=== PATIENT | female | born 1935 | race Caucasian/White ===

== ENCOUNTER 2017-03-11 06:05 | Observation (INO) | payer MEDICARE ==
[~2017-03-11] VITALS: Ht 170.2 cm; Wt 64.9 kg
[~2017-03-11 06:05] MED LIST: ZITHROMAX Z-PA250 M1 PO
[2017-03-11 06:08] VITALS: BP 151/90
--- NOTE | 2017-03-11 06:41 | Emergency Room Report ---
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 N Clinical Suspician of Infection? N Mental Status: 2 - Mildly Altered Sepsis Risk:Low Sepsis Risk Have you (or family members/close friends) recently traveled outside the [place]? N If Yes, where/when: Have you had exposure to infectious disease within the past month? N TB? Other? Specify: Comment The patient is brought in by ambulance for a syncopal episode. The patient has dementia. History is predominantly given by her son. The patient is a resident of a [facility] in [place] for the past month or so. He brought her home tonight so she could spend the night at home for a visit. In the middle of night he heard some noise in the bathroom that sounded abnormal. He got up and found the patient standing leaning on a chair. She then began to slump to the ground. He held her and eased her down. She was unconscious for about 15 minutes, eyes rolled back and hands clenched over her chest. She did not have tonic-clonic movements or incontinence. She did not respond to stimulation, cold washcloth or ammonia capsule. 911 was called and while family was on the phone with dispatch the patient regained consciousness and slowly began talking again. She now says she feels fine. She fell and hit her head a week ago at the [facility]. She says she got a bump on her head. She says she did not lose consciousness. Family also states that last week she was dehydrated and got IV fluids at the [facility]. She denies otherwise being ill. Family says she ate well last night. 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 N Clinical Suspician of Infection? N Mental Status: 2 - Mildly Altered Sepsis Risk:Low Sepsis Risk Have you (or family members/close friends) recently traveled outside the [place]? N If Yes, where/when: Have you had exposure to infectious disease within the past month? N TB? Other? Specify: Patient is a NH patient in [facility] in [place], [place], with hx of dementia and recent fall last week (she can't recall the details) but requiring IVF tx for dehydration. She was visiting her son overnight when he heard her fall in the BR around four AM. He found her "clinging to a rocking chair" and helped her to bed and states she "passed out" for about fifteen minutes, not responding to ammonia inhalants or cold rags. Pt. eventually "came to" and had no complaints. She is amnesic to this event. No loss of bowel or bladder function, but had just used the bathroom. No trauma to the tongue, face, neck, ribs, or hips. She usually ambulates unassisted. No WHITESIDE or CP; no cardiac hx. Home Medications Reported Medications DONEPEZIL HCL (Aricept 5MG) 5 MG PO QHS Escitalopram Oxalate (Escitalopram 20MG) 20 MG PO DAILY FLUDROCORTISONE ACETATE (Fludrocortisone Acetate) 1 TER NA DAILY MEMANTINE HCL (Namenda) 10 MG FT DAILY MIDODRINE HCL (Midodrine Hcl) 10 MG PO DAILY Acetaminophen (Tylenol XS 500MG) 325 MG PO Q6HP PRN PAIN (Kun JORGE, Socorro Hammond) History Medical History General CAD? No Angina: No KS: No Hypertension? Yes Hyperlipidemia? Yes CHF? No DVT? No PE? No COPD? No Asthma? No Anemia? Yes GERD? No Gastric ulcers? No GI Bleed? No Hernia? No Thyroid Problems? No Hypothyroidism? No CVA? No Seizures? No Diabetes? No Renal Insuffiency? No End Stage Renal Disease? No UTI? Yes Stones? No BPH? No GB Disease: Yes Nephritic Syndrome? No Asplenia? No Hepatitis? No Sickle Cell Disease? No Arthritis? No Migraines? Yes Cataracts? Yes Glaucoma? Yes MRSA? No TB? No Anxiety? Yes Depression? No Cancer? No Immunization Hx DT/Tetanus > 10 YRS Surgical Hx Previous Surgery?Y Gallbladd RT BREAST LUMPECT-BENIGN Social History Smoking Hx Smoker: Never Smoker Tobacco: No Type Cigarettes Alcohol Alcohol: No (Conrad English MD) Medical History Surgical Hx Previous Surgery?Y Gallbladd RT BREAST LUMPECT-BENIGN (Kun JORGE, Socorro Hammond) Review of Systems All Other Systems Reviewed and Negative Constitutional denies fever Respiratory denies cough, denies shortness of breath Cardiovascular denies chest pain, syncope Gastrointestinal denies abdominal pain, denies diarrhea, denies vomiting Genitourinary denies: dysuria, frequency. Musculoskeletal denies back pain, denies neck pain Psychiatric/Neurological denies headache, denies numbness, denies weakness (Conrad English MD) All Other Systems Reviewed and Negative (from son,NH,RN.Dementia limits) Psychiatric/Neurological see HPI (Kun JORGE, Socorro Hammond) Physical Exam Vital Signs Vital Signs Date Time Temp Pulse Resp B/P Pulse O2 O2 Flow FiO2 Ox Delivery Rate 03/11 0900 88 20 134/71 94 03/11 0608 98.1 89 20 151/90 97 General Appearance normal appearance, WD/WN, no apparent distress Eye Exam - bilateral eye normal exam, bilateral eye PERRL, bilateral eye EOMI Ear, Nose, Throat hearing grossly normal, normal ENT inspection Neck normal inspection, non-tender, supple, full range of motion Respiratory Status Yes: trachea midline, chest symmetrical, non tender chest. No: respiratory distress. Lung Sounds bilateral: normal breath sounds, lungs clear. 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 No: respiratory distress, tender on palpation, use of accessory muscles, pain on inspiration, pain on expiration, productive cough, non productive cough. Lung Sounds bilateral: normal breath sounds, lungs clear. 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 She has amnesia for event today and cannot recall details of event last week. She has good ultrasonic tester, clear speech, alert to name and place, finger to nose w/o dysmetria, CN's intact as checked. No tremor. Follows commands well. NIHSS 0. (Kun JORGE, Socorro Hammond) Medical Decision Making LABS/Meds/Orders Pt receiving controlled substance in ED? No Results/Orders Laboratory Tests 03/11/17 0700: Sodium 144, Potassium 2.7 *L, Chloride 104, Carbon Dioxide 33 H, BUN 19 H, Creatinine 1.0, Estimated Creat Clear 45 L, Estimated GFR (MDRD) 53 L, Glucose 103, Calcium 9.2, Total Bilirubin 0.5, AST 29, ALT 22, Alkaline Phosphatase 68, Creatine Kinase 38, CK-MB (CK-2) Rel Index 1.3, CK and CKMB Interp < 0.5, Troponin I 0.02, Total Protein 6.8, Albumin 3.4, Globulin 3.4 H, Albumin/ Globulin Ratio 1.0 L, WBC 7.5, RBC 5.06, Hgb 13.9, Hct 43.2, MCV 85.4, RDW 13.5 , Plt Count 230, MPV 7.5, Gran % 61.6, Gran # 4.6, Lymphocytes % 30.9, Monocytes % 5.0, Eosinophils % 2.0, Basophils % 0.4, Lymphocytes # 2.3, Monocytes # 0.4, Eosinophils # 0.2, Basophils # 0.0, PUBS MCHC 32.3, MCH 27.6 Current Medication Orders Sig/Toni Start time Last Medication Dose Route Stop Time Status Admin Potassium Chloride/ 100 ML .STK-MED ONE 03/11 852 DC Water IV Potassium Chloride/ 100 ML ONCE ONE 03/11 800 AC 03/11 Water IV 03/11 Sodium Chloride 10 ML PRN PRN 03/11 700 AC IV 03/12 652 Orders Procedure Date/time Status DIET-NOTHING BY MOUTH 03/11 B Active Decision to admit 03/11 904 Active OP COURTSEY MEAL 03/11 801 Active 12 LEAD EKG-CLARITASON (INITIAL) 03/11 721 Active ELECTROCARDIOGRAM REQUEST 03/[address] HEAD REQ 03/11 653 Complete IV SALINE LOCK 03/11 653 Active 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 Tristan, who will assume care of the patient at this time. I have discussed all clinical information including history, physical and diagnostic study results. Preliminary diagnoses based on information available at this point have been recorded by me. Controlled substance administration and critical care statement are also preliminary, as of the time of handoff. (Amador JORGE, Conrad) LABS/Meds/Orders Pt receiving controlled substance in ED? No CM/EKG CM/EKG EKG rate, rhythm, no evid. of ischemic chgs, normal QRS, normal ME, NSR with APC's noted; at times atrial bigeminy borderline RBB QTc 490 XRAY/CT/US XRAY/CT/US XRAY chest XR interpretation by reviewed by me Xray Results normal/NAD, CM neg acute; radiology final report reviewed CT head CT interpretation by reviewed by me (report reviewed) Time results known: 0749 CT Results normal/NAD, report reviewed; neg acute findings per [facility] Consult MD Physician Consult 1 Time Called 0752 Reason Pt. Condition, Admission Comments hypokalemia: order for replacement; w/ syncope will also merit admission. Physician Consult 2 Consult/PCP Dr. Beauchamp service call: pt previously w/ Drs. Lee/Jeanmarie Time Called 0852 Reason Admission Physician Consult 3 Time Called [address] Lee paged to see if he would be willing to admit patient as patient prior to recent [place] transfer was a patient of Dr. Lee; if any concerns, Dr. Beauchamp says to contact him back as Dr. Beauchamp on service call. (Kun JORGE, Socorro Hammond) Departure Departure Disposition Still a Patient Condition STABLE Referrals Jeanmarie JORGE,A.C. (Family) ED Critical Care Critical Care No (Conrad English MD) Departure Time of Disposition 0852 Clinical Impression Primary Impression: Syncope Qualifiers: Syncope type: unspecified Qualified Code: R55 - Syncope and collapse Secondary Impressions: History of hypotension, Hypokalemia ED Critical Care Critical Care Yes Time spent < 30 min Vital system(s) involved: Circulatory Failure (hypokalemia; syncope) I was present at bedside for Coordinating pt's care, Interpreting EKGs/Strips , During my initial exam, Reviewing lab results, Reviewing old records, Discussing pt condition, For re-examinations, Examining radiographs, d/w family; t/c to NH If Critical Care minutes are documented, the time involved in the performance of seperately reportable procedures was not counted toward critical care time documented. I directly delivered medical care to this critically ill and/or injured patient. Timely evaluation and treatment was necessary to address the significant organ system(s) dysfunction present in this patient. (Socorro Tristan MD) at 0719
--- NOTE | 2017-03-11 06:41 | Emergency Room Report ---
History of Present Illness Time Seen by 06 Presenting Problem in Triage Pt arrived:Ambulance Stretcher Presenting Problem:81 YO FEMALE TO ED BY EMS D/T NEAR SYNCOPAL EPISODE Onset of symptoms date/time:03/11/1710/20/499 or onset unknown for: Treatment Prior to Arrival: HOOK UP Provided by: Sepsis Risk Assessment: Temp: B/P: 151/90 MAP: 110 Pulse: 89 Resp: 20 Recent fever? N Clinical Suspician of Infection? N Mental Status: 2 - Mildly Altered Sepsis Risk:Low Sepsis Risk Have you (or family members/close friends) recently traveled outside the [place]? N If Yes, where/when: Have you had exposure to infectious disease within the past month? N TB? Other? Specify: Comment The patient is brought in by ambulance for a syncopal episode. The patient has dementia. History is predominantly given by her son. The patient is a resident of a jail in [place] for the past month or so. He brought her home tonight so she could spend the night at home for a visit. In the middle of night he heard some noise in the bathroom that sounded abnormal. He got up and found the patient standing leaning on a chair. She then began to slump to the ground. He held her and eased her down. She was unconscious for about 15 minutes, eyes rolled back and hands clenched over her chest. She did not have tonic-clonic movements or incontinence. She did not respond to stimulation, cold washcloth or ammonia capsule. 911 was called and while family was on the phone with dispatch the patient regained consciousness and slowly began talking again. She now says she feels fine. She fell and hit her head a week ago at the jail. She says she got a bump on her head. She says she did not lose consciousness. Family also states that last week she was dehydrated and got IV fluids at the jail. She denies otherwise being ill. Family says she ate well last night. ALLERGIES Coded Allergies: No Known Allergies (03/11/17) (Amador JORGE, Conrad) Presenting Problem in Triage Pt arrived:Ambulance Stretcher Presenting Problem:81 YO FEMALE TO ED BY EMS D/T NEAR SYNCOPAL EPISODE Onset of symptoms date/time:03/11/1710/20/499 or onset unknown for: Treatment Prior to Arrival: HOOK UP Provided by: Sepsis Risk Assessment: Temp: B/P: 151/90 MAP: 110 Pulse: 89 Resp: 20 Recent fever? N Clinical Suspician of Infection? N Mental Status: 2 - Mildly Altered Sepsis Risk:Low Sepsis Risk Have you (or family members/close friends) recently traveled outside the [place]? N If Yes, where/when: Have you had exposure to infectious disease within the past month? N TB? Other? Specify: Patient is a NH patient in [facility] in [place], [place], with hx of dementia and recent fall last week (she can't recall the details) but requiring IVF tx for dehydration. She was visiting her son overnight when he heard her fall in the BR around four AM. He found her "clinging to a rocking chair" and helped her to bed and states she "passed out" for about fifteen minutes, not responding to ammonia inhalants or cold rags. Pt. eventually "came to" and had no complaints. She is amnesic to this event. No loss of bowel or bladder function, but had just used the bathroom. No trauma to the tongue, face, neck, ribs, or hips. She usually ambulates unassisted. No WHITESIDE or CP; no cardiac hx. Home Medications Reported Medications DONEPEZIL HCL (Aricept 5MG) 5 MG PO QHS Escitalopram Oxalate (Escitalopram 20MG) 20 MG PO DAILY FLUDROCORTISONE ACETATE (Fludrocortisone Acetate) 1 TER NA DAILY MEMANTINE HCL (Namenda) 10 MG FT DAILY MIDODRINE HCL (Midodrine Hcl) 10 MG PO DAILY Acetaminophen (Tylenol XS 500MG) 325 MG PO Q6HP PRN PAIN (Kun JORGE, Socorro Hammond) History Medical History General CAD? No Angina: No NC: No Hypertension? Yes Hyperlipidemia? Yes CHF? No DVT? No PE? No COPD? No Asthma? No Anemia? Yes GERD? No Gastric ulcers? No GI Bleed? No Hernia? No Thyroid Problems? No Hypothyroidism? No CVA? No Seizures? No Diabetes? No Renal Insuffiency? No End Stage Renal Disease? No UTI? Yes Stones? No BPH? No GB Disease: Yes Nephritic Syndrome? No Asplenia? No Hepatitis? No Sickle Cell Disease? No Arthritis? No Migraines? Yes Cataracts? Yes Glaucoma? Yes MRSA? No TB? No Anxiety? Yes Depression? No Cancer? No Immunization Hx DT/Tetanus > 10 YRS Surgical Hx Previous Surgery?Y Gallbladd RT BREAST LUMPECT-BENIGN Social History Smoking Hx Smoker: Never Smoker Tobacco: No Type Cigarettes Alcohol Alcohol: No (Conrad English MD) Medical History Surgical Hx Previous Surgery?Y Gallbladd RT BREAST LUMPECT-BENIGN (Kun JORGE, Socorro Hammond) Review of Systems All Other Systems Reviewed and Negative Constitutional denies fever Respiratory denies cough, denies shortness of breath Cardiovascular denies chest pain, syncope Gastrointestinal denies abdominal pain, denies diarrhea, denies vomiting Genitourinary denies: dysuria, frequency. Musculoskeletal denies back pain, denies neck pain Psychiatric/Neurological denies headache, denies numbness, denies weakness (Conrad English MD) All Other Systems Reviewed and Negative (from son,NH,RN.Dementia limits) Psychiatric/Neurological see HPI (Kun JORGE, Socorro Hammond) Physical Exam Vital Signs Vital Signs Date Time Temp Pulse Resp B/P Pulse O2 O2 Flow FiO2 Ox Delivery Rate 03/11 0900 88 20 134/71 94 03/11 0608 98.1 89 20 151/90 97 General Appearance normal appearance, WD/WN, no apparent distress Eye Exam - bilateral eye normal exam, bilateral eye PERRL, bilateral eye EOMI Ear, Nose, Throat hearing grossly normal, normal ENT inspection Neck normal inspection, non-tender, supple, full range of motion Respiratory Status Yes: trachea midline, chest symmetrical, non tender chest. No: respiratory distress. Lung Sounds bilateral: normal breath sounds, lungs clear. Cardiovascular normal exam, regular rate/rhythm, no peripheral edema, no gallop, no JVD, no murmur, no rub, normal peripheral pulses Peripheral Pulses Pulses normal Yes Gastrointestinal normal bowel sounds, normal exam, non tender, soft, no organomegaly Extremities non-tender, normal range of motion, normal inspection Neurologic alert, access control specialist II-XII nml as tested, normal exam, no motor/sensory deficits Mental status normal mood/affect Skin intact, normal color, warm/dry (Conrad English MD) General Appearance normal appearance, WD/WN, no apparent distress Eye Exam - bilateral eye normal exam, bilateral eye PERRL, bilateral eye EOMI (no diplopia;no field cuts) Ear, Nose, Throat hearing grossly normal (atraumatic) Neck normal inspection, non-tender, supple, full range of motion Respiratory Status Yes: trachea midline, chest symmetrical, non tender chest. No: respiratory distress, tender on palpation, use of accessory muscles, pain on inspiration, pain on expiration, productive cough, non productive cough. Lung Sounds bilateral: normal breath sounds, lungs clear. Cardiovascular normal exam, regular rate/rhythm, no peripheral edema, no gallop, no JVD, no murmur, no rub, normal peripheral pulses (APC's on monitor occasionally) Peripheral Pulses Peripheral Pulses 2+ radial (R), 2+ radial (L), 2+ dorsalis pedis (R), 2+ dorsalis pedis (L) Back normal inspection, no CVA tenderness, no vertebral tenderness, bowel/ bladder continent, strt leg raising(L)-NML, strt leg raising(R)-NML Strength 5 Upper Ext (L), 5 Upper Ext (R), 5 Lower Ext (L), 5 Lower Ext (R) Neurologic alert, access control specialist II-XII nml as tested, normal exam, no motor/sensory deficits, Has dementia but can tell me her name and is communicative about her sx. She has amnesia for event today and cannot recall details of event last week. 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 No tremor. Follows commands well. NIHSS 0. (Kun JORGE, Socorro Hammond) Medical Decision Making LABS/Meds/Orders Pt receiving controlled substance in ED? No Results/Orders Laboratory Tests 03/11/17 0700: Sodium 144, Potassium 2.7 *L, Chloride 104, Carbon Dioxide 33 H, BUN 19 H, Creatinine 1.0, Estimated Creat Clear 45 L, Estimated GFR (MDRD) 53 L, Glucose 103, Calcium 9.2, Total Bilirubin 0.5, AST 29, ALT 22, Alkaline Phosphatase 68, Creatine Kinase 38, CK-MB (CK-2) Rel Index 1.3, CK and CKMB Interp < 0.5, Troponin I 0.02, Total Protein 6.8, Albumin 3.4, Globulin 3.4 H, Albumin/ Globulin Ratio 1.0 L, WBC 7.5, RBC 5.06, Hgb 13.9, Hct 43.2, MCV 85.4, RDW 13.5 , Plt Count 230, MPV 7.5, Gran % 61.6, Gran # 4.6, Lymphocytes % 30.9, Monocytes % 5.0, Eosinophils % 2.0, Basophils % 0.4, Lymphocytes # 2.3, Monocytes # 0.4, Eosinophils # 0.2, Basophils # 0.0, PUBS MCHC 32.3, MCH 27.6 Current Medication Orders Sig/Toni Start time Last Medication Dose Route Stop Time Status Admin Potassium Chloride/ 100 ML .STK-MED ONE 03/11 852 DC Water IV Potassium Chloride/ 100 ML ONCE ONE 03/11 800 AC 03/11 Water IV 03/11 Sodium Chloride 10 ML PRN PRN 03/11 700 AC IV 03/12 652 Orders Procedure Date/time Status DIET-NOTHING BY MOUTH 03/11 B Active Decision to admit 03/11 904 Active OP COURTSEY MEAL 03/11 801 Active 12 LEAD EKG-CLARITASON (INITIAL) 03/11 721 Active ELECTROCARDIOGRAM REQUEST 03/[address] HEAD REQ 03/11 653 Complete IV SALINE LOCK 03/11 653 Active ENDOSCOPY RN 03/11 653 Active ORTHOSTATIC B/P 03/11 653 Active URINALYSIS/COMPLETE 03/11 653 Active CBC WITH AUTO DIFF 03/11 653 Complete CARDIAC ENZYMES 03/11 653 Complete CHEM 12 PROFILE 03/11 653 Complete Progress - 7:30 AM: At shift change, I have discussed the patient with Dr. Tristan, who will assume care of the patient at this time. I have discussed all clinical information including history, physical and diagnostic study results. Preliminary diagnoses based on information available at this point have been recorded by me. Controlled substance administration and critical care statement are also preliminary, as of the time of handoff. (Amador JORGE, Conrad) LABS/Meds/Orders Pt receiving controlled substance in ED? No CM/EKG CM/EKG EKG rate, rhythm, no evid. of ischemic chgs, normal QRS, normal SD, NSR with APC's noted; at times atrial bigeminy borderline RBB QTc 490 XRAY/CT/US XRAY/CT/US XRAY chest XR interpretation by reviewed by me Xray Results normal/NAD, CM neg acute; radiology final report reviewed CT head CT interpretation by reviewed by me (report reviewed) Time results known: 0749 CT Results normal/NAD, report reviewed; neg acute findings per [facility] Consult MD Physician Consult 1 Time Called 0752 Reason Pt. Condition, Admission Comments hypokalemia: order for replacement; w/ syncope will also merit admission. Physician Consult 2 Consult/PCP Dr. Beauchamp service call: pt previously w/ Drs. Lee/Jeanmarie Time Called 0852 Reason Admission Physician Consult 3 Time Called [address] Lee paged to see if he would be willing to admit patient as patient prior to recent [place] transfer was a patient of Dr. Lee; if any concerns, Dr. Beauchamp says to contact him back as Dr. Beauchamp on service call. (Kun JORGE, Socorro Hammond) Departure Departure Disposition Still a Patient Condition STABLE Referrals Jeanmarie JORGE,A.C. (Family) ED Critical Care Critical Care No (Conrad English MD) Departure Time of Disposition 0852 Clinical Impression Primary Impression: Syncope Qualifiers: Syncope type: unspecified Qualified Code: R55 - Syncope and collapse Secondary Impressions: History of hypotension, Hypokalemia ED Critical Care Critical Care Yes Time spent < 30 min Vital system(s) involved: Circulatory Failure (hypokalemia; syncope) I was present at bedside for Coordinating pt's care, Interpreting EKGs/Strips , During my initial exam, Reviewing lab results, Reviewing old records, Discussing pt condition, For re-examinations, Examining radiographs, d/w family; t/c to NH If Critical Care minutes are documented, the time involved in the performance of seperately reportable procedures was not counted toward critical care time documented. I directly delivered medical care to this critically ill and/or injured patient. Timely evaluation and treatment was necessary to address the significant organ system(s) dysfunction present in this patient. (Socorro Tristan MD) at 0755
--- OUTSIDE RECORDS SUMMARY | 2017-03-11 06:51 | External Medical Summary Rpt ---
Author Author [facility] Organization [facility] Address Unknown Phone Unavailable Care Team Providers Care Gas Leak Inspector Helper Name Role Phone IJEOMA, (REF) PCP [phone] Encounter [facility] [id number] Date(s): 09/13/16 - 09/13/[address] [facility] [address] [place] [address]- Discharge Disposition: Left Without Being Seen Attending Physician: CALEB JOHNSON MD Admitting Physician: CALEB JOHNSON MD Referring Physician: CALEB JOHNSON MD Reason for Visit DEMENTIA Vital Signs Most recent 1 to oldest [Reference Range]: Temperature Oral Source (09/13/16 3:53 PM) Temperature Fahrenheit Mode (09/13/16 3:53 PM) Temperature, 99.2 Deg F Fahrenheit (09/13/16 3:53 PM) [96.8-99.7 Deg F] Clinical 37.3 Deg C Temperature, (09/13/16 3:53 PM) C Peripheral 93 bpm Pulse Rate (09/13/16 3:53 PM) [60-100 bpm] Respiratory 12 Breaths/Min Rate [14-20 *LOW* Breaths/Min] (09/13/16 3:53 PM) Blood 96/48 mmHg Pressure (09/13/16 3:53 PM) [90-140/60-9 0 mmHg] Oxygen 97 % Saturation (09/13/16 3:53 PM) [94-100 %] Oxygen Room air Therapy Mode (09/13/16 3:53 PM) Problem List Condition Effective Status Health Informant Dates Status Hyperlipidem Active ia(Confirmed ) Hypothyroid( Active Confirmed) Mitral valve Active prolapse(Con firmed) Allergies, Adverse Reactions, Alerts No Known Medication Allergies Medications escitalopram (escitalopram 20 mg oral tablet) 1 Tab, Oral, Every Day, Refills: 0 fludrocortisone (fludrocortisone 0.1 mg oral tablet)1 Tab, Oral, Every Day, Refills: 0 Results No data available for this section Immunizations No data available for this section Procedures No data available for this section Social History No data available for this section Assessment and Plan No data available for this section Hospital Discharge Instructions No data available for this section
--- OUTSIDE RECORDS SUMMARY | 2017-03-11 06:51 | External Medical Summary Rpt ---
Author Author [facility] Organization [facility] Address Unknown Phone Unavailable Care Team Providers Care Driving Instructor Name Role Phone IJEOMA, (REF) PCP [phone] Encounter [facility] [id number] Date(s): 01/23/17 - 01/23/17 [facility] [place] [address]- Discharge Diagnosis: Confusion Discharge Diagnosis: Advanced dementia Discharge Diagnosis: Acute cystitis Discharge Disposition: OP Self Care or Home Attending Physician: EPHRAIM URIOSTEGUI MD Admitting Physician: EPHRAIM URISOTEGUI MD Referring Physician: EPHRAIM URIOSTEGUI MD Reason for Visit ACUTE CYSTITIS WITHOUT HEMATURIA Vital Signs Most recent 1 2 3 to oldest [Reference Range]: Temperature Oral (01/23/17 Source 10:21 AM) Temperature Fahrenheit Mode (01/23/17 10:21 AM) Temperature, 98.1 Deg F Fahrenheit (01/23/17 10:21 [96.8-99.7 AM) Deg F] Clinical 36.7 Deg C Temperature, (01/23/17 10:21 C AM) Peripheral 80 bpm 84 bpm 70 bpm Pulse Rate (01/23/17 3:47 PM) (01/23/17 2:30 PM) (01/23/17 1:30 PM) [60-100 bpm] Respiratory 17 Breaths/Min 16 Breaths/Min 16 Breaths/Min Rate [14-20 (01/23/17 3:47 PM) (01/23/17 2:30 PM) (01/23/17 1:30 PM) Breaths/Min] Blood 151/65 mmHg 161/88 mmHg 166/80 mmHg Pressure *HI* *HI* *HI* [90-140/60-9 (01/23/17 3:47 PM) (01/23/17 2:30 PM) (01/23/17 1:30 PM) 0 mmHg] Oxygen 98 % 98 % 98 % (01/23/17 Saturation (01/23/17 2:30 PM) (01/23/17 1:30 PM) 12:42 PM) [94-100 %] Problem List Condition Effective Status Health Informant Dates Status Hyperlipidem Active ia(Confirmed ) Hypothyroid( Active Confirmed) Mitral valve Active prolapse(Con firmed) Allergies, Adverse Reactions, Alerts No Known Medication Allergies Medications escitalopram (escitalopram 20 mg oral tablet) 1 Tab, Oral, Every Day, Refills: 0 fludrocortisone (fludrocortisone 0.1 mg oral tablet)1 Tab, Oral, Every Day, Refills: 0 nitrofurantoin (Macrobid 100 mg oral capsule)1 Cap, Oral, Two Times A Day, 10 Day(s), Refills: 0Ordering provider: EPHRAIM URIOSTEGUI MD Results GENERAL CHEMISTRY Most recent 1 to oldest [Reference Range]: Sodium Level 141 mmol/L [136-146 (01/23/17 10:42 AM) mmol/L] Potassium 4.1 mmol/L Level (01/23/17 10:42 AM) [3.5-5.1 mmol/L] Chloride 106 mmol/L Level (01/23/17 10:42 AM) [102-112 mmol/L] Carbon 30 mmol/L Dioxide (01/23/17 10:42 AM) Level [21-32 mmol/L] Anion Gap 9 [9-20] (01/23/17 10:42 AM) Glucose 115 mg/dL Level *HI* [74-106 (01/23/17 10:42 AM) mg/dL] Blood Urea 26 mg/dL Nitrogen *HI* [7-22 mg/dL] (01/23/17 10:42 AM) Creatinine 0.80 mg/dL Level (01/23/17 10:42 AM) [0.55-1.02 mg/dL] eGFR 83 mL/min/1.73m2 [>=60 (01/23/17 10:42 AM) mL/min/1.73m 2] eGFR 69 mL/min/1.73m2 NonAfrican (01/23/17 10:42 AM) [>=60 mL/min/1.73m 2] Bun/Creatini 32.5 ne *HI* [8.0-20.0] (01/23/17 10:42 AM) Calcium 9.0 mg/dL Level (01/23/17 10:42 AM) [8.5-10.1 mg/dL] Protein 6.3 Gram/dL Total *LOW* [6.4-8.2 (01/23/17 10:42 AM) Gram/dL] Albumin 3.4 Gram/dL Level (01/23/17 10:42 AM) [3.4-5.0 Gram/dL] Globulin 2.9 Gram/dL [1.5-4.5 (01/23/17 10:42 AM) Gram/dL] A/G Ratio 1.2 [1.1-2.5] (01/23/17 10:42 AM) Bilirubin 0.3 mg/dL Total (01/23/17 10:42 AM) [0.2-1.3 mg/dL] Alk Phos 59 Units/Liter [27-136 (01/23/17 10:42 AM) Units/Liter] AST [5-37 11 Units/Liter Units/Liter] (01/23/17 10:42 AM) ALT [12-78 15 Units/Liter Units/Liter] (01/23/17 10:42 AM) Lactic Acid 1.5 mmol/L Level (01/23/17 10:42 AM) [0.4-2.0 mmol/L] CARDIAC SPECIFIC MARKERS Most recent 1 to oldest [Reference Range]: Troponin I <0.015 ng/mL Ultra (01/23/17 10:42 AM) [0.015-0.045 ng/mL] HEMATOLOGY Most recent 1 to oldest [Reference Range]: WBC 9.0 K/uL [4.0-10.0 (01/23/17 10:42 AM) K/uL] RBC 4.59 Million/uL [3.93-5.22 (01/23/17 10:42 AM) Million/uL] Hgb 13.0 g/dL [11.2-15.7 (01/23/17 10:42 AM) g/dL] Hct 39.2 % [34.1-44.9 (01/23/17 10:42 AM) %] MCV 85.4 fL [79.0-94.8 (01/23/17 10:42 AM) fL] MCH 28.3 pg [25.6-32.2 (01/23/17 10:42 AM) pg] MCHC 33.2 Gram/dL [32.2-36.5 (01/23/17 10:42 AM) Gram/dL] Platelet 235 K/uL Count (01/23/17 10:42 AM) [163-369 K/uL] MPV 9.6 fL [9.4-12.4 (01/23/17 10:42 AM) fL] RDW 13.6 % [11.6-14.4 (01/23/17 10:42 AM) %] Neut % 75.0 % [34.0-71.0 *HI* %] (01/23/17 10:42 AM) Neut # 6.72 K/uL [1.56-6.13 *HI* K/uL] (01/23/17 10:42 AM) Lymph % 17.6 % [19.3-53.1 *LOW* %] (01/23/17 10:42 AM) Lymph # 1.58 x10(3)/uL [1.00-3.90 (01/23/17 10:42 AM) x10(3)/uL] [place] % 6.1 % [3.0-9.0 %] (01/23/17 10:42 AM) [place] # 0.55 K/uL [0.16-1.00 (01/23/17 10:42 AM) K/uL] Eos % 0.7 % [0.0-7.0 %] (01/23/17 10:42 AM) Eos # 0.06 x10(3)/uL [0.00-0.80 (01/23/17 10:42 AM) x10(3)/uL] Baso % 0.4 % [0.0-1.5 %] (01/23/17 10:42 AM) Baso # 0.04 x10(3)/uL [0.00-0.20 (01/23/17 10:42 AM) x10(3)/uL] Slide Review No (01/23/17 10:42 AM) IG# 0.02 x10(3)/uL [0.00-0.05 (01/23/17 10:42 AM) x10(3)/uL] IG% 0.20 % [0.00-0.60 (01/23/17 10:42 AM) %] URINALYSIS Most recent 1 to oldest [Reference Range]: Urine Type. U Cath *NA* (01/23/17 10:42 AM) Urine Color Yellow *NA* (01/23/17 10:42 AM) Urine Clear Appearance (01/23/17 10:42 AM) Urine 1.007 Specific (01/23/17 10:42 AM) [place] [1.005-1.030 ] Urine pH 7.0 Dipstick (01/23/17 10:42 AM) [6.0-8.0] Urine Moderate Leukocyte *ABN* Esterase (01/23/17 10:42 AM) [Negative] Urine Negative Nitrite (01/23/17 10:42 AM) [Negative] Urine Negative Protein (01/23/17 10:42 AM) Dipstick [Negative] Urine Negative Glucose (01/23/17 10:42 AM) Dipstick [Negative] Urine Negative Ketones (01/23/17 10:42 AM) Dipstick [Negative] Urine 0.2 EU/dL Urobilinogen (01/23/17 10:42 AM) Dipstick Urine Negative Bilirubin (01/23/17 10:42 AM) Dipstick [Negative] Urine Blood Trace Dipstick *ABN* [Negative] (01/23/17 10:42 AM) Ur RBC 0-2 /HPF *ABN* (01/23/17 10:42 AM) Ur WBC 2-5 /HPF *ABN* (01/23/17 10:42 AM) Ur Squamous 2-5 /HPF Epithelial *ABN* Cells (01/23/17 10:42 AM) Microbiology Reports TEST: Urine Culture STATUS: Order in Progress BODY SITE: SOURCE: Urine, Catherized COLLECTED DATE/TIME: 01/23/17 10:42 AMPRELIMINARY REPORT10,000-100,000 cfu/ ml Gram Positive [place]ci Immunizations No data available for this section Procedures No data available for this section Social History No data available for this section Assessment and Plan No data available for this section Hospital Discharge Instructions Patient EducationDementia
--- OUTSIDE RECORDS SUMMARY | 2017-03-11 06:51 | External Medical Summary Rpt ---
Author Author [facility] Organization [facility] Address Unknown Phone Unavailable Care Team Providers Care Cost Estimating Manager Name Role Phone IJEOMA, (REF) PCP [phone] [facility] [id number] Date(s): 09/13/16 - 09/13/16 [facility] [address] [place] [address]- [phone] Discharge Disposition: Left Without Being Seen Attending [...]
--- OUTSIDE RECORDS SUMMARY | 2017-03-11 06:51 | External Medical Summary Rpt ---
Author Author [facility] Organization [facility] Address Unknown Phone Unavailable Care Team Providers Care House Piping Inspector Name Role Phone IJEOMA, (REF) PCP [phone] Encounter [facility] [id number] Date(s): 01/23/17 - 01/23/17 [facility] [place] [address]- Discharge Diagnosis: Confusion Discharge Diagnosis: Advanced dementia Discharge Diagnosis: Acute cystitis Discharge Disposition: OP Self Care or Home Attending Physician: EPHRAIM URIOSTEGUI MD Admitting Physician: EPHRAIM URIOSTEGUI MD Referring Physician: EPHRAIM URIOSTEGUI MD Reason [...] 1.58 x10(3)/uL [1.00-3.90 (01/23/17 10:42 AM) x10(3)/uL] [place] % 6.1 % [3.0-9.0 %] (01/23/17 10:42 AM) [place] # 0.55 K/uL [0.16-1.00 (01/23/17 10:42 AM) [...] AM) Urine 1.007 Specific (01/23/17 10:42 AM) [place] [1.005-1.030 ] Urine pH 7.0 Dipstick (01/23/17 [...]
--- OUTSIDE RECORDS SUMMARY | 2017-03-11 06:52 | External Medical Summary Rpt ---
Author Author [facility] Organization [employer] Address Unknown Phone Unavailable
--- OUTSIDE RECORDS SUMMARY | 2017-03-11 06:52 | External Medical Summary Rpt | CCD ---
Author Author , [facility] Address Unknown Phone [email or web address] Immunization Name Date Rout CVX Reac Dose Comm Prov Is Faci e tion ent ider Refu lity Give sed n Infl 08-2 135 0.5 Hist [facility] No [facility] uenz 2-20 mL oric ART5 ART5 a, 16 al 91 91 High Info rmat Dose ion - Sour ce Unsp ecif ied Pneu 01-0 Intr 109 999 Hist D203 No D203 moco 8-20 amus oric 45 45 ccal 16 cula al , UF r Info rmat ion - Sour ce Unsp ecif ied
--- OUTSIDE RECORDS SUMMARY | 2017-03-11 06:52 | External Medical Summary Rpt | CCD ---
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 I10 Essential 09-25-2016 (primary) hypertensio n I95.1 Orthostatic 09-25-2016 hypotension K59.00 Constipatio 09-25-2016 n, unspecified N39.0 Urinary 09-25-2016 tract infection, site not specified R41.82 Altered 09-25-2016 mental status, unspecified I34.1 Nonrheumati 09-21-2016 c mitral (valve) prolapse R07.9 Chest pain, 09-21-2016 unspecified Z90.49 Acquired 09-21-2016 absence of other specified parts of digestive tract Results Labs Lab Lab Date Result Refere Interp Status Commen Order Detail nces retati t Range on Bacteria XXX Anaerobe+Aerobe Cult (09-17-2016 06:27) Bacteri [id number] complet a XXX 017 06 No ed Anaerob 06:27 growth e+Aerob (qualif e Cult ier value) SCT NGB6 NO GROWTH DAY 5. L Bacteria XXX Anaerobe+Aerobe Cult (09-16-2016 18:09) Bacteri NGB2 NO complet a XXX 017 GROWTH ed Anaerob 18:09 DAY 2. e+Aerob L e Cult Bacteria Ur Cult (09-16-2016 17:56) CC XXX NOTAP complet VC-aCnc 017 NOT ed 17:56 APPLICA BLE L Bacteri [id number] complet a XXX 017 10,000- ed Anaerob 17:56 100,000 e+Aerob CFU/ml e Cult L Bacteri [id number] complet a XXX 017 9 ed Anaerob 17:56 normal e+Aerob brook e Cult (findin g) SCT UMXF Mixed urogeni donna or skin brook present . Suggest appropr iate recolle ction with timely deliver y to the laborat ory, if clinica lly indicat ed. L Lipase SerPl-cCnc (09-16-2016 16:58) Lipase 58 U/L 19-63 complet SerPl-c 017 ed Cnc 16:58 Lactate Bld-sCnc (09-15-2016 18:22) Lactate 1.2 complet 017 mmol/L ed Bld-sCn 18:22 c Lipase SerPl-cCnc (09-15-2016 18:22) Lipase 68 U/L 19-63 complet SerPl-c 017 ed Cnc 18:22
--- OUTSIDE RECORDS SUMMARY | 2017-03-11 06:52 | External Medical Summary Rpt | CCD ---
Author Author NIRU Address Unknown Phone [email or web address] Purpose Continuity of Care Document - through 2016
--- OUTSIDE RECORDS SUMMARY | 2017-03-11 06:52 | External Medical Summary Rpt | CCD ---
Author Author , NIRU MARRUFO Address Unknown Phone [email or web address] Immunization Name Date Rout CVX Reac Dose [...]
--- OUTSIDE RECORDS SUMMARY | 2017-03-11 06:52 | External Medical Summary Rpt | CCD ---
Author Author , NIRU MARRUFO Address Unknown Phone [email or web address] Purpose Continuity of Care Document - 09-15-2016 [...] Bacteria XXX Anaerobe+Aerobe Cult (09-17-2016 06:27) Bacteri [id number] complet a XXX 017 06 No ed [...] NOT ed 17:56 APPLICA BLE L Bacteri [id number] complet a XXX 017 10,000- ed Anaerob 17:56 100,000 e+Aerob CFU/ml e Cult L Bacteri [id number] complet a XXX 017 9 ed Anaerob [...]
--- OUTSIDE RECORDS SUMMARY | 2017-03-11 06:52 | External Medical Summary Rpt | CCD ---
Author Author NIRU Address Unknown Phone [email or web address] Purpose Continuity of Care Document - through 2016
[2017-03-11 07:02] LABS: HEMOGLOBIN 13.9 g/dL (12.2-16.2); LYMPH # 2.3 K/mm3 (0.7-4.5); LYMPH % 30.9 % (10-50.0)
[2017-03-11 07:26] LABS: BUN 19 mg/dL (7-18)
[2017-03-11 07:27] LABS: GFR (ESTIMATED) 53 ML/MIN (59-)
--- NOTE | 2017-03-11 07:30 | RADIOLOGY REPORT PS360 ---
CT HEAD W/O CONTRAST HISTORY: Syncope SYNCOPE ORDERING PHYSICIAN: Conrad Enlgish MD PATIENT AGE: 81 years COMPARISON: None TECHNIQUE: Axial images obtained without contrast. Brain and bone windows reviewed. FINDINGS: No midline shift, mass effect, intracranial hemorrhage, hydrocephalus, or extra-axial fluid collection is evident. There are involutional changes of age with mild cortical atrophy and mild periventricular ischemic gliotic change. The calvarium has an unremarkable appearance. No mastoid effusion. The visualized paranasal sinuses are unremarkable. IMPRESSION: No acute intracranial findings.
--- NOTE | 2017-03-11 07:31 | RADIOLOGY REPORT PS360 ---
CHEST-PORTABLE HISTORY: syncope ORDERING PHYSICIAN: Conrad English MD PATIENT AGE: 81 years COMPARISON: 12/27/2007 FINDINGS: There is mild cardiomegaly without failure. Lung bases are underpenetrated. No definite lobar consolidation or collapse. There is increased density in the lung bases laterally probably related to breast attenuation artifact. Upper lobes are clear. IMPRESSION: Cardiomegaly, no acute finding
[2017-03-11] MEDS ORDERED: ARICEPT 5MG TAB5 MG PO (08:29)
[2017-03-11] MEDS ORDERED: ESCITALOPRAM 2020 MG PO (08:30)
[2017-03-11] MEDS ORDERED: NAMENDA10 M1 PO (08:36)
[2017-03-11] MEDS ORDERED: FLUDROCORTISONE (08:36)
[2017-03-11] MEDS ORDERED: TYLENOL ES500 MG PO (08:37)
[2017-03-11] MEDS ORDERED: MIDODRINE HCL10 MG PO (08:37)
--- OUTSIDE RECORDS SUMMARY | 2017-03-11 09:15 | External Medical Summary Rpt | Continuity of Care Document ---
Author Author Organization Address Unknown Phone Unavailable Care Team Providers Care Manager Mortgage Name Role Phone , Unavailable Unavailable EMS Current Medications Section EMS Allergies and Adverse Reactions EMS Past Medical History Medications Administered Section EMS Procedures Performed EMS Vital Signs EMS Patient Care Report Narrative D: EC1 dispatched to reported possible Stroke/CVA. Patient was unresponsive on first dispatch, patient became alert prior to our arrival. Patient was laying supine in bed upon arrival C: 81 year old female with chief complaint of possible stroke. H: Family stated they heard her moaning about 15 minutes prior to calling EMS and went in to check on her when they found her unconscious. She was unresponsive for a few minutes then began to wake up. Family stated she does have a history of dementia but that she was still off of her normal baseline. Patient lives in [facility] normally but is visiting with family over the weekend. [facility]. S: Unresponsive, hands clenched, now groggy A: NKA M: Propanolol P: Dementia, Heart Murmor, Possible TIA x1 year ago, Vertigo, Anxiety L: N/A E: Syncopal episode after trying to use the restroom. A: Patient alert and oriented x4 after EMS arrival. BGL 109. Performed [place] Stroke Assessment, negative deficits in all aguirre. Patient complaining of foot pain as her only complaint. Pedal pulses present in both feet. Family stated she is still off of her normal baseline. Vitals shown slightly hypertensive, normal to tachycardia heart rate, pulse oximetry 95% on room air. EKG 12 lead showed Normal Sinus Rhythm. MEND exam performed, negative for any deficits. Patient able to follow all commands and answer any medical history. Physical Exam revealed tenderness upon palpation of both ankles. No other DCAP BTLS noted. Started 18 bridger IV, blood draw, flushed and secured. R: BGL, [place] Stroke Assessment, ALS Assessment, Vitals, 12 lead EKG, 18 bridger IV, blood draw flushed and secured, MEND exam, Vitals, Verbal Assessment, 2nd MEND exam, Continued monitoring. T: Transferred from bed to stretcher with assist x3, secured x5 and loaded in to EC unit. Patient had no changes enroute to [facility]. Patient transferr d over to hospital bed with assist x3. Transferred patient report to Aruna Vieira RN. M: Patient transferred via EMS for acute illness needing further evaluation by ER.
--- OUTSIDE RECORDS SUMMARY | 2017-03-11 09:15 | External Medical Summary Rpt | Continuity of Care Document ---
Author Author Organization Address Unknown Phone Unavailable Care Team Providers Care Trimmer Machine Name Role Phone , Unavailable Unavailable EMS [...] of her normal baseline. Patient lives in [facility] normally but is visiting with family over the weekend. She is a patient at the long term due to her dementia. S: Unresponsive, hands clenched, now groggy A: NKA M: Propanolol P: Dementia, Heart Murmor, Possible TIA x1 year ago, Vertigo, Anxiety L: N/A E: Syncopal episode after trying to use the restroom. A: Patient alert and oriented x4 after EMS arrival. BGL 109. Performed [place] Stroke Assessment, negative deficits in all aguirre. [...] blood draw, flushed and secured. R: BGL, [place] Stroke Assessment, ALS Assessment, Vitals, 12 lead EKG, 18 bridger IV, blood draw flushed and secured, MEND exam, Vitals, Verbal Assessment, 2nd MEND exam, Continued monitoring. T: Transferred from bed to stretcher with assist x3, secured x5 and loaded in to EC unit. Patient had no changes enroute to [facility]. Patient transferr d over to hospital bed with assist x3. Transferred patient report to Aruna Vieira RN. M: Patient transferred via EMS for acute illness needing further evaluation by ER.
--- OUTSIDE RECORDS SUMMARY | 2017-03-11 09:16 | External Medical Summary Rpt | CCD ---
Author Author , NIRU Organization NIRU Address Unknown Phone [email or web address] Purpose Continuity of Care Document - 09-15-2016 [...] Order Detail nces retati t Range on Comprehensive metabolic panel (03-11-2017 07:00) Serum = 1.0 1.1-1.8 complet or 017 ed plasma 07:00 albumin /globul in mass ra Protein = 6.8 6.4-8.2 complet total 017 gm/dL ed ser/brittney 07:00 s ALT = 22 12-78 complet (SGPT) 017 U/L ed ser/brittney 07:00 s Serum = 29 15-37 complet or 017 U/L ed plasma 07:00 asparta te aminotr ansfera Serum = 144 136-145 complet sodium 017 mmoL/L ed measure 07:00 ment Serum = 2.7 3.5-5.1 complet potassi 017 mmoL/L ed um 07:00 measure ment Comment: CRITICAL RESULTS Comment: RESULTS CALLED TO: CLA 03/11/17 0728 Geo Harkins Comment: Mary Serum = 103 74-106 complet or 017 mg/dL ed plasma 07:00 glucose measure ment (mas Serum = 3.4 1.3-3.2 complet globuli 017 gm/dL ed n 07:00 measure ment (mass/v olume) Estimat = 53 59- complet ed 017 ML/MIN ed glomeru 07:00 lar filtrat ion rate (GF Comment: REFERENCE RANGE: >60 ML/MIN/1.73 SQUARE METERS Comment: If this patient is -Nigerien, then multiply the Comment: result by 1.210. Estimat = 45 50-200 complet ion of 017 ML/MIN ed creatin 07:00 ine renal clearan ce Serum = 1.0 0.55-1. complet or 017 mg/dL 02 ed plasma 07:00 creatin ine measure ment ( Carbon = 33 21.0-32 complet dioxide 017 mmoL/L .0 ed 07:00 measure ment Serum = 104 98-107 complet or 017 mmoL/L ed plasma 07:00 chlorid e measure ment (mo Serum = 9.2 8.5-10. complet or 017 mg/dL 1 ed plasma 07:00 calcium measure ment (mas Serum = 19 7-18 complet or 017 mg/dL ed plasma 07:00 urea nitroge n measure men Serum = 0.5 0.2-1.0 complet or 017 mg/dL ed plasma 07:00 total bilirub in measure m Serum = 68 46-116 complet or 017 U/L ed plasma 07:00 alkalin e phospha tase kuldeep Serum = 3.4 3.4-5.0 complet or 017 gm/dL ed plasma 07:00 albumin measure ment (mas Cardiac enzymes (03-11-2017 07:00) Serum = 0.02 0.00-0. complet or 017 ng/mL 06 ed plasma 07:00 troponi n i.cardi ac measu Serum = 38 26-192 complet or 017 U/L ed plasma 07:00 creatin e kinase measure m Serum < 0.5 0.0-3.6 complet or 017 ng/mL ed plasma 07:00 creatin e kinase MB measu Serum = 1.3 0-4.0 complet or 017 U/L ed plasma 07:00 creatin e kinase MB (CK-M CBC w auto diff (03-11-2017 07:00) Blood = 7.5 4.8-10. complet leukocy 017 K/MM3 8 ed marie 07:00 count (number /volume ) Automat = 13.5 11.5-17 complet ed 017 % .5 ed erythro 07:00 cyte distrib ution width Red = 5.06 4.2-5.4 complet blood 017 M/mm3 ed cell 07:00 count Blood = 230 142-424 complet platele 017 K/mm3 ed t count 07:00 Automat = 7.5 7.4-10. complet ed 017 fl 4 ed blood 07:00 platele t mean volume kuldeep [place] % = 5.0 % 1.7-9.3 complet 017 ed 07:00 Absolut = 0.4 0.1-1.0 complet e 017 K/mm3 ed monocyt 07:00 e count Automat = 85.4 82.2-97 complet ed 017 fl .8 ed erythro 07:00 cyte mean corpusc ular v Automat = 32.3 31.8-35 complet ed 017 g/dl .4 ed erythro 07:00 cyte mean corpusc ular h Mean = 27.6 27-31.2 complet corpusc 017 pg ed ular 07:00 hemoglo bin (MCH) determ Lymphoc = 30.9 10-50.0 complet yte 017 % ed count, 07:00 blood, automat ed Absolut 11-06-2 = 2.3 0.7-4.5 complet e 017 K/mm3 ed lymphoc 07:00 yte count Blood = 13.9 12.2-16 complet hemoglo 017 g/dL .2 ed bin 07:00 measure ment (mass/v olum Blood = 43.2 37.0-47 complet hematoc 017 % .0 ed rit 07:00 (volume fractio n) Granulo = 61.6 37.0-80 complet cyte 017 % .0 ed percent 07:00 age Blood = 4.6 1.8-7.8 complet granulo 017 K/mm3 ed cytes 07:00 automat ed count (numb Automat = 2.0 % 0.1-12. complet ed 017 0 ed blood 07:00 eosinop hils/10 0 leukocy t Automat = 0.2 0.0-0.4 complet ed 017 K/mm3 ed blood 07:00 eosinop hil count Baso % = 0.4 % 0.1-2.0 complet 017 ed 07:00 Automat 2 = 0.0 0-0.2 complet ed 017 K/MM3 ed blood 07:00 basophi l count (count/ vo Bacteria XXX Anaerobe+Aerobe Cult (09-17-2016 06:27) Bacteri [id number] complet a XXX 017 06 No ed Anaerob 06:27 growth e+Aerob (qualif e Cult ier value) SCT NGB6 NO GROWTH DAY 5. L Bacteria XXX Anaerobe+Aerobe Cult (09-16-2016 18:09) Bacteri NGB2 NO complet a XXX 017 GROWTH ed Anaerob 18:09 DAY 2. e+Aerob L e Cult Bacteria Ur Cult (09-16-2016 17:56) Bacteri [id number] complet a XXX 017 9 ed Anaerob 17:56 normal e+Aerob brook e Cult (findin g) SCT UMXF Mixed urogeni donna or skin brook present . Suggest appropr iate recolle ction with timely deliver y to the laborat ory, if clinica lly indicat ed. L Bacteri [id number] complet a XXX 017 10,000- ed Anaerob 17:56 100,000 e+Aerob CFU/ml e Cult L CC XXX NOTAP complet VC-aCnc 017 NOT ed 17:56 APPLICA BLE L Lipase SerPl-cCnc (09-16-2016 16:58) Lipase 58 U/L 19-63 complet SerPl-c 017 ed Cnc 16:58 Lactate Bld-sCnc (09-15-2016 18:22) Lactate 1.2 complet 017 mmol/L ed Bld-sCn 18:22 c Lipase SerPl-cCnc (09-15-2016 18:22) Lipase 68 U/L 63 complet SerPl-c 017 ed Cnc 18:22
--- OUTSIDE RECORDS SUMMARY | 2017-03-11 09:16 | External Medical Summary Rpt | CCD ---
Author Author , NIRU Organization NIRU Address Unknown Phone [email or web address] Purpose Continuity of Care Document - 09-15-2016 [...] SQUARE METERS Comment: If this patient is -Russian, then multiply the Comment: result by 1.210. [...] blood 07:00 platele t mean volume kuldeep [place] % = 5.0 % 1.7-9.3 complet 017 [...] Bacteria XXX Anaerobe+Aerobe Cult (09-17-2016 06:27) Bacteri [id number] complet a XXX 017 06 No ed Anaerob 06:27 growth e+Aerob (qualif e Cult ier value) SCT NGB6 NO GROWTH DAY 5. L Bacteria XXX Anaerobe+Aerobe Cult (09-16-2016 18:09) Bacteri NGB2 NO complet a XXX 017 GROWTH ed Anaerob 18:09 DAY 2. e+Aerob L e Cult Bacteria Ur Cult (09-16-2016 17:56) Bacteri [id number] complet a XXX 017 9 ed Anaerob 17:56 normal e+Aerob brook e Cult (findin g) SCT UMXF Mixed urogeni donna or skin brook present . Suggest appropr iate recolle ction with timely deliver y to the laborat ory, if clinica lly indicat ed. L Bacteri [id number] complet a XXX 017 10,000- ed Anaerob [...]
--- OUTSIDE RECORDS SUMMARY | 2017-03-11 09:17 | External Medical Summary Rpt | CCD ---
Author Author , NIRU MARRUFO Address Unknown Phone [email or web address] Immunization Name Date Rout CVX Reac Dose [...]
--- OUTSIDE RECORDS SUMMARY | 2017-03-11 09:17 | External Medical Summary Rpt | CCD ---
Author Author NIRU Address Unknown Phone [email or web address] Purpose Continuity of Care Document - through 2016
--- OUTSIDE RECORDS SUMMARY | 2017-03-11 09:17 | External Medical Summary Rpt | CCD ---
Author Author NIRU Address Unknown Phone [email or web address] Purpose Continuity of Care Document - through 2016
--- OUTSIDE RECORDS SUMMARY | 2017-03-11 09:17 | External Medical Summary Rpt | CCD ---
Author Author , NIRU MARRUFO Address Unknown Phone [email or web address] Immunization Name Date Rout CVX Reac Dose [...]
--- NOTE | 2017-03-11 10:18 | PHARMACY CLINIC NOTE ---
Patient Demographics Patient Demographics Admission date: 03/11/17 Date: 03/11/17 Time: 1017 Allergies Coded Allergies: No Known Allergies (03/11/17) HEIGHT- FT: 5 IN: 7.00 K.864 VTE General Information Labs: Laboratory Tests 03/11 0700 Hematology Hgb (12.2 - 16.2 g/dL) 13.9 Hct (37.0 - 47.0 %) 43.2 Plt Count (142 - 424 K/mm3) 230 Disclaimer The following section includes nursing documentation that has been pulled in for pharmacy review. VTE prophylaxis NQF 0371 VTE prophylaxis ordered? Yes Type of prophylaxis/treatment: ASA at 1017
[2017-03-11 11:04] VITALS: BP 143/76
--- NOTE | 2017-03-11 11:38 | HISTORY AND PHYSICAL REPORT ---
Demographics: Admit date: 03/11/17 Chief complaint: Syncope PRIMARY DIAGNOSIS: HYPOKALEMIA Allergies: Coded Allergies: No Known Allergies (03/11/17) History of present illness: History of present illness: Patient presented to the emergency department after experiencing a syncopal event while visiting family overnight. Please see ER note for full details. At the time of my interview with the patient she cannot recall very many details of her visit so far. Patient was found to be hypokalemic and has been admitted for replacement of potassium. Patient currently resides in a penitentiary in [place]. The exact medications she is taking was unclear but apparently has been taking fludrocortisone for orthostatic hypotensionn. Side effect of this medicine is hypokalemiia. Past medical history: Family HX Family Hx Insignificant No Immunization HX DT/Tetanus > 10 YRS General CAD? No Angina: No OR: No Hypertension? Yes Hyperlipidemia? Yes CHF? No DVT? No PE? No COPD? No Asthma? No Anemia? Yes GERD? No Gastric ulcers? No GI Bleed? No Hernia? No Thyroid Problems? No Hypothyroidism? No CVA? No Seizures? No Diabetes? No Renal Insuffiency? No UTI? Yes Stones? No BPH? No GB Disease: Yes Nephritic Syndrome? No Asplenia? No Hepatitis? No Sickle Cell Disease? No Arthritis? No Migraines? Yes Cataracts? Yes Glaucoma? Yes MRSA? No TB? No Anxiety? Yes Depression? No Cancer? No Additional hx: Dementia Past Surgical HX Previous Surgery?Y Gallbladd RT BREAST LUMPECT-BENIGN Current home meds: Reported Medications DONEPEZIL HCL (Aricept 5MG) 15 MG PO QHS MEMANTINE HCL (Namenda) 10 MG PO BID MIDODRINE HCL (Midodrine Hcl) 10 MG PO TID Fludrocortisone Acetate 0.2 MG PO DAILY POLYETHYLENE GLYCOL (Miralax) 17 GM PO DAILY Escitalopram Oxalate (Escitalopram 20MG) 20 MG PO DAILY Acetaminophen (Tylenol XS 500MG) 325 MG PO Q6HP PRN PAIN Social Hx: Smoking HX Tobacco No Type Cigarettes Alcohol Alcohol: No Hx of Drug Use Drug Use? No Comment: Currently resides in a penitentiary in [place] Review of systems: Constitutional weakness. No: chills, diaphoresis, fever, malaise. Respiratory no symptoms reported. Cardiovascular syncope Gastrointestinal/Abdominal no symptoms reported Genitourinary no symptoms reported. Musculoskeletal no symptoms reported. Neurological Yes: see HPI. Exam: Lab data for last 24 hours: Laboratory Tests 03/11/17 0700: Sodium 144, Potassium 2.7 *L, Chloride 104, Carbon Dioxide 33 H, BUN 19 H, Creatinine 1.0, Estimated Creat Clear 45 L, Estimated GFR (MDRD) 53 L, Glucose 103, Calcium 9.2, Total Bilirubin 0.5, AST 29, ALT 22, Alkaline Phosphatase 68, Creatine Kinase 38, CK-MB (CK-2) Rel Index 1.3, CK and CKMB Interp < 0.5, Troponin I 0.02, Total Protein 6.8, Albumin 3.4, Globulin 3.4 H, Albumin/ Globulin Ratio 1.0 L, WBC 7.5, RBC 5.06, Hgb 13.9, Hct 43.2, MCV 85.4, RDW 13.5 , Plt Count 230, MPV 7.5, Gran % 61.6, Gran # 4.6, Lymphocytes % 30.9, Monocytes % 5.0, Eosinophils % 2.0, Basophils % 0.4, Lymphocytes # 2.3, Monocytes # 0.4, Eosinophils # 0.2, Basophils # 0.0, PUBS MCHC 32.3, MCH 27.6 Admission vital signs: 1ST Vital Signs Result Date Time Pulse Ox 97 03/11 608 B/P 151/90 03/11 608 Temp 98.1 03/11 608 Pulse 89 03/11 608 Resp 20 03/11 608 O2 Delivery ROOM AIR 03/11 1104 Exam General appearance: awake, no acute distress Eyes: anicteric Neck: no carotid bruit, no JVD Cardiovascular: regular rate & rhythm Respiratory: clear to auscultation ABD: soft, no tenderness Extremities: moves all Plan: Problem List 1. Syncope 2. Hypokalemia 3. History of hypotension Plan: Admit for potassium replacement and cardiac monitoring.
[2017-03-11 11:49] VITALS: BP 143/76
[2017-03-11 14:08] LABS: URINE BILIRUBIN - DIPSTICK NEGATIVE (NEG); URINE BLOOD TRACE-INTACT (NEG)
[2017-03-11] MEDS ORDERED: FLUDROCORTISON0.1 M1 PO (14:21)
[2017-03-11] MEDS ORDERED: MIRALAX(PO17 GM/1 PA PO (14:22)
[2017-03-11 15:33] VITALS: BP 151/93
[2017-03-11 20:30] VITALS: BP 122/72
[2017-03-11 23:55] VITALS: BP 162/82
[2017-03-12 04:38] VITALS: BP 147/46
[2017-03-12 06:18] LABS: HEMOGLOBIN 12.8 g/dL (12.2-16.2); LYMPH # 2.2 K/mm3 (0.7-4.5); LYMPH % 23.9 % (10-50.0)
--- NOTE | 2017-03-12 07:32 | Discharge Summary ---
Demographics Admit date: 03/11/17 Discharge date: 03/12/17 Discharge diagnoses Problem List 1. Syncope 2. Hypokalemia 3. History of hypotension History of present illness History of present illness Patient presented to the emergency department after experiencing a syncopal event while visiting family overnight. Please see ER note for full details. At the time of my interview with the patient she cannot recall very many details of her visit so far. Patient was found to be hypokalemic and has been admitted for replacement of potassium. Patient currently resides in a penitentiary in [place]. The exact medications she is taking was unclear but apparently has been taking fludrocortisone for orthostatic hypotensionn. Side effect of this medicine is hypokalemiia. Patient was admitted on telemetry. No arrhythmias were detected. She was given a combination of oral and IV potassium which brought her potassium up to 3.2. This patient had no further presyncope or arrhythmias she was discharged back to her penitentiary. Recommend a BMP be checked within a week to assure that potassium is staying stable. I do believe low potassium was caused by her fludrocortisone Medications Medications: Discharge meds are as noted. Follow up Follow up in office in: [place] with: Faby Lyle APRN at [phone]
[2017-03-12 07:53] VITALS: BP 143/79
[2017-03-12 09:37] VITALS: BP 143/79
== END 2017-03-12 10:30 ==
LOC: ER 06:05 → ICU 09:11 → ER 09:11 → ICU 10:12
PROVIDERS: Emergency Medicine
DX: E87.6 Hypokalemia (principal); Y92.009 Unspecified place in unspecified non-institutional (private) residence as the place of occurrence of the external cause; T50.0X5A Adverse effect of mineralocorticoids and their antagonists, initial encounter; R55 Syncope and collapse; F03.90 Unspecified dementia, unspecified severity, without behavioral disturbance, psychotic disturbance, mood disturbance, and anxiety; I10 Essential (primary) hypertension; I95.1 Orthostatic hypotension; Z79.52 Long term (current) use of systemic steroids; Z79.899 Other long term (current) drug therapy
CPT/HCPCS: G0378